=== PATIENT | male | born 1965 | race Caucasian/White ===

== ENCOUNTER 2021-01-30 08:40 | Emergency (ER) | payer MEDICAID, SELFPAY ==
[2021-01-30 08:41] VITALS: BP 171/83; PULSE 53; RESP 17; TEMP 35.3; O2SAT 98; BMI 22.3
--- NOTE | 2021-01-30 09:22 | RAD_ITS ---
STUDY: X-RAY CHEST REASON FOR EXAM: Male, 55 years old. Fever TECHNIQUE: Single AP portable view of the chest. COMPARISON: None. FINDINGS: EKG electrodes are seen. Subcutaneous emphysema is seen overlying the left lateral chest wall and left upper abdominal wall. Mild degree of increased markings at the lung bases slightly more prominent on the right side suggestive of atelectasis. There is no demonstrated pleural abnormality. Normal size heart. Normal mediastinum and jay. Normal visualized pulmonary arteries. Normal visualized aortic arch and descending thoracic aorta. Normal visualized thoracic spine. Normal visualized ribs, clavicles, and shoulders. Small amount of free intra-abdominal air most likely secondary to prior recent abdominal surgery. There is evidence of the small bowel dilatation. RAD/Chest 1 View (Portable) IMPRESSION: Mild increased markings at the lung bases slightly worse on the right side suggests some basilar atelectasis. Subcutaneous emphysema overlying the left lateral chest wall and left upper lateral abdominal wall. Small amount of free intraperitoneal air. Small bowel dilatation. Electronically Signed: Jose Nichols MD at 11:21 EST , Service support ,
--- NOTE | 2021-01-30 09:22 | EKG12_ITS ---
Test Reason : Blood Pressure : / mmHG Vent. Rate : 053 BPM Atrial Rate : 053 BPM P-R Int : 094 ms QRS Dur : 100 ms QT Int : 452 ms P-R-T Axes : 058 041 043 degrees QTc Int : 424 ms Sinus bradycardia with short [place] Otherwise normal ECG Confirmed by OWEN DURON, ROSA ([id number]), medical editor JEAN-CLAUDE ALLEN ([id number]) on 02/03/2021 10:24:02 AM Referred By: RIKY Confirmed By:ROSA WEAVER MD
[2021-01-30 10:11] LABS: Absolute Lymphocyte Count 0.85 X10^3/uL (0.83-4.51); Absolute Neutrophil Count 10.9 X10^3/uL (2.0-7.7); Basophil# 0.02 X10^3/uL; Basophil% 0.2 % (0-1); Eosinophil# 0.01 X10^3/uL; Eosinophils% 0.1 % (0-5); Hematocrit 38.1 % (40-54); Lymphocyte # 0.85 X10^3/ul (0.83-4.51); Lymphocyte % 6.6 % (19-41); Mean Corp Hgb Conc 34.1 g/dL (32-36); Mean Corpuscular Hgb 30.4 pg (27.0-32.0); Mean Platelet Vol. 11.2 fl (6.2-12.0); Monocyte# 1.07 X10^3/uL; Monocyte% 8.3 % (0-10); NRBC Flagged by Analyzer 0 % (0-5); Neutrophil # 10.85 X10^3/uL (2.7-7.7); Neutrophil % 84.3 % (47-70); Platelet Count 194 K/mm3 (150-450); RBC Distribution Width CV 13.2 % (11.6-14.6); RBC Distribution Width SD 43.5 fl (35.1-43.9); Red Blood Count 4.28 M/mm3 (4.6-6.2); White Blood Count 12.9 K/mm3 (4.4-11.0)
[2021-01-30] MEDS: Ondansetron 4 MG/2 ML Vial IV (10:19)
[2021-01-30] MEDS: 0.9% Normal Saline 1,000 ML 999 ML IV (10:19)
[2021-01-30] MEDS: Acetaminophen 500 MG Tablet 1000 MG PO (10:20)
[2021-01-30 10:21] LABS: Prothrombin Time (Protime)PT. 12.3 SECONDS (11.7-14.9)
[2021-01-30 10:22] LABS: Partial Thromboplast Time 29.8 Seconds (24.1-36.2)
[2021-01-30 10:27] LABS: Lactic Acid 1.1 mmol/L (0.4-1.9)
[2021-01-30 10:28] VITALS: BP 172/84; PULSE 53; RESP 18; TEMP 36.7; O2SAT 99
[2021-01-30 10:28] LABS: ALB/GLOB Ratio 0.8 RATIO (0.9-2.4); AST(SGOT) 15 U/L (15-37); Alanine Aminotransfer ALT/SGPT 13 U/L (16-61); Albumin, Serum 3.1 g/dL (3.2-5.0); Alkaline Phosphatase 61 U/L (45-117); Anion Gap 7 (5-15); BUN 13 mg/dL (7-18); BUN/Creat Ratio 13.8 RATIO (10-20); Chloride 97 mmol/L (98-107); Creatinine, Serum 0.94 mg/dL (0.70-1.30); EST Glomerular Filtration Rate 88 mL/min (>60); Est Glom Filt Rate - Afr Amer 106 mL/min (>60); Estimated Creatinine Clearance 90.08 ml/min; Glucose 141 mg/dL (74-106); Potassium 3.7 mmol/L (3.5-5.1); Protein, Total 7.1 g/dL (6.4-8.2); Sodium Level 134 mmol/L (136-145)
--- NOTE | 2021-01-30 11:09 | EX.ED.DYSGE1 ---
HPI History of Present Illness Chief Complaint: General Illness Informant: patient and spouse/S.O. Onset/Context/Timing Onset: Days (3) Context: Gradual Onset Timing: Continuous Quality: Aching Location: Lower abdomen Worsened by: Nothing Relieved by: Oxycodone, ibuprofen Narrative Narrative: Patient presents with chills and sweats that have been getting worse over the past 3 days. Patient had a recent prostatectomy done at [facility]. Patient was discharged after the procedure. Patient started developing nausea and vomiting since that time. Patient has a Mistry catheter in. Patient states that he was having hematuria after his surgery but it started to clear up. Patient then stated that he started having some more hematuria again over the last 2 days. Patient states his symptoms are better after taking oxycodone and ibuprofen. Patient also admits to some increase in belching and hiccups. PFSH PFS Medical History Prostate cancer Home Medications amoxicillin-pot clavulanate 875 mg PO Q12H #20 tablet 01/30/21 [Rx Last Taken Unknown] docusate sodium 100 mg PO BID 01/30/21 [History Last Taken Unknown] ibuprofen 600 mg PO Q6H PRN 01/30/21 [History Last Taken 01/30/21] ondansetron 4 mg PO Q8H PRN PRN #10 tab 01/30/21 [Rx Last Taken Unknown] oxycodone 5 mg PO Q4H PRN 01/30/21 [History Last Taken 01/30/21 07:00] Allergy/AdvReac Type Severity Reaction Status Date / Time No Known Allergies Allergy Verified 10/22/14 09:47 Surgical History History of prostatectomy Social History Smoking Status: Current every day smoker tobacco type: cigarettes ROS ROS ED Constitutional Constitutional ED: Reports chills, subjective and sweats; Denies fever(s) Eyes Eyes: Denies blurry vision or change in vision ENT ENT ED: Denies rhinorrhea or sore throat Cardiovascular Cardiovascular: Denies chest pain or palpitations Respiratory/Chest Respiratory/Chest: Denies cough or dyspnea Gastrointestinal Gastrointestinal: Reports abdominal pain, nausea and vomiting Genitourinary Genitourinary ED: Reports hematuria; Denies dysuria Musculoskeletal Musculoskeletal: Denies back pain or neck pain Integumentary Denies abscess or rash Neurologic Neurologic: Denies headache(s) or weakness Allergic/Immunologic Allergic/Immunologic ED: Denies mouth swelling or urticaria EXAM Physical Exam Const Vital Signs: 01/30/21 08:41 01/30/21 10:28 01/30/21 12:14 Temperature 95.5 F L 98.0 F Temperature Source Temporal Oral Pulse Rate 53 L 53 L 51 L Respiratory Rate 17 18 20 H Respiratory Effort Normal Non-Labored Blood Pressure 171/83 H 172/84 H 168/82 H Blood Pressure Mean 112 113 110 Pulse Ox 98 99 Oxygen Delivery Method Room Air Room Air Room Air Positive well nourished and well developed General Appearance ED: well developed HEENT Reports moist mucous membranes Neck supple and no JVD Resp normal respiratory effort and clear to auscultation bilaterally Cardio regular rate, regular rhythm and no murmurs GI normal to inspection, nondistended, normoactive bowel sounds Palpation: soft and tender suprapubic; Negative for guarding or rebound tenderness present Extremity normal to inspection General Extremety ED: Negative for edema or tenderness General Extremity: Negative for edema Neuro oriented x3, CN's II-XII intact bilaterally and no sensory deficits noted Sensorium / Orientation: alert Motor Exam: strength 5/5 throughout Psych mental status grossly normal Skin no rashes or lesions noted MDM MDM MDM Narrative Medical decision making narrative: Patient was given IV fluids, Tylenol, and Zofran. EKG was obtained. On my interpretation, it showed a normal sinus rhythm with a rate of 53. AK interval, QRS interval, and QTc intervals were all normal. [place] was normal. There are no acute ST or T wave changes. CBC shows a slight leukocytosis of 12.9. Her PT with INR and PTT were normal. Comprehensive metabolic profile anterior laterally was essentially within normal limits. Lactate was normal at 1.1. Urinalysis shows leukocyte esterase of 100 with 25-50 red blood cells. There were positive nitrites and 10-25 white blood cells. Occult blood was 250. Portable chest x-ray was obtained. There is 1 view. On my interpretation, there is small amount of free intraperitoneal air. There is subcutaneous emphysema in the lateral aspect of the chest. There is some mild bowel dilatation. Radiologist also interpreted the x-ray and agrees. Because of this, CT scan of the abdomen pelvis was obtained. There is still some intraperitoneal air. There is subcutaneous emphysema. There is a small bowel ileus. These findings are likely from recent surgery. This was interpreted by the radiologist and reviewed by myself. Patient is feeling somewhat better on reevaluation. We will cover the patient for urinary tract infection. Patient was given a dose of Augmentin here. Patient was given a prescription for Zofran and Augmentin. Patient was instructed to start with small sips of fluids more frequently. Patient was instructed to advance to a bland diet and then to a regular diet as he is feeling better. Patient was instructed to follow-up with his urologist in 3 to 5 days. Patient understood and was agreeable with the plan. All questions were answered. Lab Data Attestation: I reviewed the patient's lab results. Labs: Laboratory Results - last 24 hr 01/30/21 01/30/21 01/30/21 09:50 09:50 09:50 WBC 12.9 H RBC 4.28 L Hgb 13.0 Hct 38.1 L MCV 89.0 MCH 30.4 MCHC 34.1 RDW Std Deviation 43.5 RDW Coeff of Fernando 13.2 Plt Count 194 MPV 11.2 Immature Gran % (Auto) 0.500 Neut % (Auto) 84.3 H Lymph % (Auto) 6.6 L Delta % (Auto) 8.3 Eos % (Auto) 0.1 Baso % (Auto) 0.2 Absolute Neuts (auto) 10.9 H Absolute Lymphs (auto) 0.85 Nucleated RBC % 0 PT 12.3 INR 1.0 APTT 29.8 Sodium 134 L Potassium 3.7 Chloride 97 L Carbon Dioxide 30.0 Anion Gap 7 BUN 13 Creatinine 0.94 Estim Creat Clear Calc 90.08 Est GFR (MDRD) Af Amer 106 Est GFR (MDRD) Non-Af 88 BUN/Creatinine Ratio 13.8 Glucose 141 H Lactic Acid Calcium 9.0 Total Bilirubin 0.60 AST 15 ALT 13 L Alkaline Phosphatase 61 Total Protein 7.1 Albumin 3.1 L Globulin 4.0 Albumin/Globulin Ratio 0.8 L Urine Color Urine Clarity Urine pH Ur Specific [place] Urine Protein Urine Glucose (UA) Urine Ketones Urine Occult Blood Urine Nitrite Urine Bilirubin Urine Urobilinogen Ur Leukocyte Esterase Urine RBC Urine WBC Ur Squamous Epith Cells Urine Bacteria Urine Mucus 01/30/21 01/30/21 09:50 11:31 WBC RBC Hgb Hct MCV MCH MCHC RDW Std Deviation RDW Coeff of Fernando Plt Count MPV Immature Gran % (Auto) Neut % (Auto) Lymph % (Auto) Delta % (Auto) Eos % (Auto) Baso % (Auto) Absolute Neuts (auto) Absolute Lymphs (auto) Nucleated RBC % PT INR APTT Sodium Potassium Chloride Carbon Dioxide Anion Gap BUN Creatinine Estim Creat Clear Calc Est GFR (MDRD) Af Amer Est GFR (MDRD) Non-Af BUN/Creatinine Ratio Glucose Lactic Acid 1.1 Calcium Total Bilirubin AST ALT Alkaline Phosphatase Total Protein Albumin Globulin Albumin/Globulin Ratio Urine Color [place] Urine Clarity Cloudy Urine pH 6.0 Ur Specific [place] 1.020 Urine Protein 100 H Urine Glucose (UA) 50 H Urine Ketones 50 H Urine Occult Blood 250 H Urine Nitrite Positive H Urine Bilirubin Negative Urine Urobilinogen Normal Ur Leukocyte Esterase 100 H Urine RBC 25-50 SEEN Urine WBC 10-25 SEEN Ur Squamous Epith Cells 0 SEEN Urine Bacteria 0 SEEN Urine Mucus 0 SEEN Radiography Chest X-Ray - ED: 1 View, Read by ED Physician, Read by Radiologist and - (Bibasilar atelectasis. Subcutaneous emphysema. No pneumothorax.) Diagnostic Testing: Clinical Impression(s) from Imaging Studies Chest X-Ray 01/30/21 09:22 IMPRESSION: Mild increased markings at the lung bases slightly worse on the right side suggests some basilar atelectasis. Subcutaneous emphysema overlying the left lateral chest wall and left upper lateral abdominal wall. Small amount of free intraperitoneal air. Small bowel dilatation. Electronically Signed: Jose Nichols MD at 11:21 EST , Service support , Abdomen/Pelvis CT 01/30/21 11:39 IMPRESSION: Diffuse subcutaneous emphysema as well as intraperitoneal free air and air in the pelvis suggestive of postoperative changes from the recent prostatectomy. Findings suggestive of a bowel ileus. Electronically Signed: Jose Nichols MD at 13:46 EST , Service support , EKG Initial EKG: Attestation: I personally reviewed and interpreted this EKG as follows: Interpretation: No Acute Injury Pattern and Sinus Bradycardia (53) Discharge Plan Triage Chief Complaint: General Illness ED Provider: Alton Preston Dx/Rx/DC Orders Clinical Impression: Postoperative ileus, Urinary tract infection Prescriptions: New ondansetron [ondansetron] 4 MG tablet 4 mg PO Q8H PRN PRN (Reason: Nausea) Qty: 10 RF: 0 amoxicillin-pot clavulanate [amoxicillin-pot clavulanate] 875 MG tablet 875 mg PO Q12H Qty: 20 RF: 0 No Action oxycodone 5 mg Capsule 5 mg PO Q4H PRN (Reason: Pain) RF: 0 ibuprofen 600 mg Tablet 600 mg PO Q6H PRN (Reason: Pain) RF: 0 docusate sodium 100 mg Tablet 100 mg PO BID RF: 0 Primary Care Provider: Leroy Redmond Referrals: Leroy Redmond MD [Primary Care Provider] - 3-5 Days Bernardino Davis MD [NON-STAFF] - 3-5 Days Disposition Disposition: Home, Self Care
--- NOTE | 2021-01-30 11:39 | CT_ITS ---
STUDY: CT ABDOMEN AND PELVIS WITH CONTRAST REASON FOR EXAM: Male, 55 years old. Abdominal pain -- IV PO Contrast RADIATION DOSAGE (If Supplied By Facility): CTDIvol = ( 10.47 ) mGy, DLP = ( 623.43 ) mGycm TECHNIQUE: Transaxial images were obtained from the dome of the diaphragm to the symphysis pubis with oral contrast. Oral and amp; IV Gastrografin and amp; 100mL Isovue-300 was administered. Sagittal and coronal images were reconstructed. Individualized dose optimization techniques were used for this CT. COMPARISON: Comparison is made with prior radiograph done earlier today. FINDINGS: There is evidence of subcutaneous emphysema overlying the lower left lateral chest wall as well as the lateral and anterior aspects of the abdominal wall. There is also evidence of subcutaneous emphysema overlying the lower right anterior and lateral abdominal wall. This extends into the anterior abdominal wall extending into both scrotums. There is evidence of intraperitoneal air. Tiny air pockets are also seen in the pelvic fat. Minimal bibasilar atelectasis. The visualized portions of the heart are within normal limits. Normal liver. Small amount of free fluid is seen along the inferior edge of the liver. Normal gallbladder and extrahepatic biliary system. Normal spleen. Normal pancreas. There is symmetric enlargement of the adrenal glands suggesting adrenal hyperplasia. Normal right kidney. Normal left kidney. Normal visualized stomach. Mildly dilated small bowel loops. Distended transverse colon with the air. The appendix is visualized and appears normal. Normal abdominal aorta. Normal inferior vena cava. Normal retroperitoneum. A ZENDEJAS catheter is seen within a decompressed urinary bladder. The patient is status post prostatectomy. Normal abdominal wall. Normal osseous structures. CT/Abdomen/Pelvis WITH Contrast IMPRESSION: Diffuse subcutaneous emphysema as well as intraperitoneal free air and air in the pelvis suggestive of postoperative changes from the recent prostatectomy. Findings suggestive of a bowel ileus. Electronically Signed: Jose Nichols MD at 13:46 EST , Service support ,
[2021-01-30 11:44] LABS: Bacteria 0 SEEN /hpf (None Seen); Mucous, Urine 0 SEEN /hpf (<or=2+); Squamous Epithelial Cells - UA 0 SEEN /hpf (0-5)
[2021-01-30 11:51] LABS: Color, Urine Amber (Yellow); Glucose, Dipstick 50 mg/dl (Normal); Ketone-Dipstick 50 mg/dl (Negative); Leukocyte Esterase-Dipstick 100 /ul (Negative); Nitrite-Dipstick Positive (Negative); Occult Blood-Urine 250 /ul (Negative); Protein-Dipstick 100 mg/dl (Negative); Urine Bilirubin Dipstick Negative (Negative); Urine Clarity Cloudy (Clear); Urine Urobilinogen Normal (Normal)
[2021-01-30 11:57] LABS: Red Blood Cells-Urine 25-50 SEEN /hpf (0-5); White Blood Cells 10-25 SEEN /hpf (0-5)
[2021-01-30 12:14] VITALS: BP 168/82; PULSE 51; RESP 20
[2021-01-30 14:05] VITALS: BP 146/75; PULSE 82; RESP 18; O2SAT 96
[2021-01-30] MEDS: Amox/Clavulanate 875 MG Tablet PO (14:22)
== END 2021-01-30 14:27 | disposition home or self-care (01) ==
PROVIDERS: Emergency Provider Emergency Medicine; PCP Family Medicine
DX: K56.7 Ileus, unspecified (principal); N39.0 Urinary tract infection, site not specified; F17.210 Nicotine dependence, cigarettes, uncomplicated; Z90.79 Acquired absence of other genital organ(s); Z79.899 Other long term (current) drug therapy
CPT/HCPCS: 71045; 74177; 80053; 81001; 83605; 85025; 85610; 85730; 87040; 87086; 93005; 96374; 99284; J7030; Q9967; J2405

== ENCOUNTER 2021-01-31 14:09 | Emergency (ER) | payer MEDICAID, SELFPAY ==
[2021-01-31] VITALS (7 sets, daily range): BP systolic 101–161; BP diastolic 84–98; PULSE 62–79; RESP 18–29; TEMP 36.9–37.2; O2SAT 96–100; BMI 22.3
--- NOTE | 2021-01-31 14:39 | EDS_ITS ---
HPI History of Present Illness Chief Complaint: Nausea/Vomiting Informant: patient and spouse/S.O. Onset/Context/Timing Onset: Days Narrative Narrative: Patient returns back to the emergency room today with continued nausea and vomiting along with hiccups. Patient had a prostatectomy performed on Wednesday at [facility]. He was discharged home after the surgery. He was seen in [place] ER yesterday with hiccups, nausea. During the work-up yesterday patient was noted to have an ileus. Patient returns today with inability to keep anything down. PFSH PFS Medical History Prostate cancer Home Medications amoxicillin-pot clavulanate 875 mg PO Q12H #20 tablet 01/30/21 [Rx Last Taken Unknown] docusate sodium 100 mg PO BID 01/30/21 [History Last Taken Unknown] ibuprofen 600 mg PO Q6H PRN 01/30/21 [History Last Taken 01/30/21] ondansetron 4 mg PO Q8H PRN PRN #10 tab 01/30/21 [Rx Last Taken Unknown] oxycodone 5 mg PO Q4H PRN 01/30/21 [History Last Taken 01/30/21 07:00] Allergy/AdvReac Type Severity Reaction Status Date / Time No Known Allergies Allergy Verified 01/31/21 14:09 Surgical History History of prostatectomy Social History Smoking Status: Current every day smoker tobacco type: cigarettes ROS ROS ED Constitutional Constitutional ED: Denies chills or fever(s) Eyes Eyes: Denies change in vision ENT ENT ED: Denies rhinorrhea Cardiovascular Cardiovascular: Denies chest pain or palpitations Respiratory/Chest Respiratory/Chest: Denies cough or dyspnea Gastrointestinal Gastrointestinal: Reports abdominal pain, nausea and vomiting Musculoskeletal Musculoskeletal: Denies myalgias Integumentary Denies rash Neurologic Neurologic: Denies headache(s) Psychiatric Psychiatric: Denies anxiety or depression Endocrine Endocrinology: Denies polydipsia or polyuria EXAM Physical Exam Const Vital Signs: 01/31/21 14:09 01/31/21 14:12 01/31/21 16:09 Temperature 98.9 F Temperature Source Temporal Pulse Rate 66 75 62 Respiratory Rate 18 18 19 H Blood Pressure 161/90 H 161/90 H 138/86 H Blood Pressure Mean 113 113 103 Pulse Ox 100 100 99 Oxygen Delivery Method Room Air Room Air Room Air Positive well nourished and well developed General Appearance ED: well developed Eyes PERRL Neck supple Chest Wall inspection of chest normal and palpation of chest normal Resp normal respiratory effort and clear to auscultation bilaterally Cardio regular rate and regular rhythm GI non-tender Auscultation: hypoactive bowel sounds Palpation: soft Extremity normal to inspection Neuro oriented x3 Sensorium / Orientation: alert Skin no rashes or lesions noted MDM MDM MDM Narrative Medical decision making narrative: Patient is given IV fluids. He is given a dose of Thorazine to help with hiccups. EKG, lab work obtained. I did review his work-up from yesterday including CT scan. Lab Data Attestation: I reviewed the patient's lab results. Labs: Laboratory Results - last 24 hr 01/31/21 01/31/21 14:27 14:27 WBC 14.8 H RBC 4.47 L Hgb 13.4 Hct 39.5 L MCV 88.4 MCH 30.0 MCHC 33.9 RDW Std Deviation 42.8 RDW Coeff of Fernando 13.2 Plt Count 271 MPV 10.8 Immature Gran % (Auto) 0.300 Neut % (Auto) 79.2 H Lymph % (Auto) 11.0 L [place] % (Auto) 8.0 Eos % (Auto) 1.3 Baso % (Auto) 0.2 Absolute Neuts (auto) 11.7 H Absolute Lymphs (auto) 1.63 Nucleated RBC % 0 Sodium 135 L Potassium 3.6 Chloride 99 Carbon Dioxide 29.0 Anion Gap 7 BUN 15 Creatinine 1.03 Estim Creat Clear Calc 82.20 Est GFR (MDRD) Af Amer 96 Est GFR (MDRD) Non-Af 79 BUN/Creatinine Ratio 14.6 Glucose 118 H Calcium 9.1 Total Bilirubin 0.80 Direct Bilirubin 0.18 AST 19 ALT 16 Alkaline Phosphatase 61 Total Protein 7.1 Albumin 3.2 Globulin 3.9 Treatment and Re-Evaluation Comments:: On repeat evaluation patient states hiccups seem to be resolved for short time, but when the patient sat up they returned. He is clearly not been able to tolerate p.o. normally this week. He has failed outpatient management. I will speak with hospitalist regarding admission for observation and hydration. He does have evidence of ileus on CT scan from yesterday. He states he was passing gas this morning. Addendum: I spoke with the hospitalist. She requested that that surgery evaluate the patient and ensure he could stay here. Dr. Houston presented to the emergency room to see the patient and reviewed the CT scan from last evening. He is concerned that the patient has a bowel injury as there is significantly more air present then should be 4 days postop from a prostatectomy. He recommended the patient be given Zosyn, NG tube, transferred back to [facility]. Patient accepted by Dr Davis to the ED at [facility]. Discharge Plan Triage Chief Complaint: Nausea/Vomiting ED Provider: Ananya Calles Dx/Rx/DC Orders Clinical Impression: Postoperative ileus, Intractable hiccups, Vomiting Prescriptions: No Action oxycodone 5 mg Capsule 5 mg PO Q4H PRN (Reason: Pain) RF: 0 ibuprofen 600 mg Tablet 600 mg PO Q6H PRN (Reason: Pain) RF: 0 docusate sodium 100 mg Tablet 100 mg PO BID RF: 0 ondansetron [ondansetron] 4 MG tablet 4 mg PO Q8H PRN PRN (Reason: Nausea) Qty: 10 RF: 0 amoxicillin-pot clavulanate [amoxicillin-pot clavulanate] 875 MG tablet 875 mg PO Q12H Qty: 20 RF: 0 Primary Care Provider: Leroy Redmond Referrals: Leroy Redmond MD [Primary Care Provider] - Disposition Disposition: Acute Care Hospital Discharge Location: [facility]
[2021-01-31 14:45] LABS: Absolute Lymphocyte Count 1.63 X10^3/uL (0.83-4.51); Absolute Neutrophil Count 11.7 X10^3/uL (2.0-7.7); Basophil# 0.03 X10^3/uL; Basophil% 0.2 % (0-1); Eosinophils% 1.3 % (0-5); Hematocrit 39.5 % (40-54); Hemoglobin 13.4 g/dL (13.0-16.5); Lymphocyte # 1.63 X10^3/ul (0.83-4.51); Mean Corp Hgb Conc 33.9 g/dL (32-36); Mean Corpuscular Volume 88.4 fL (80-94); Mean Platelet Vol. 10.8 fl (6.2-12.0); Monocyte# 1.19 X10^3/uL; NRBC Flagged by Analyzer 0 % (0-5); Neutrophil # 11.72 X10^3/uL (2.7-7.7); Neutrophil % 79.2 % (47-70); Platelet Count 271 K/mm3 (150-450); RBC Distribution Width CV 13.2 % (11.6-14.6); RBC Distribution Width SD 42.8 fl (35.1-43.9); Red Blood Count 4.47 M/mm3 (4.6-6.2); White Blood Count 14.8 K/mm3 (4.4-11.0)
--- NOTE | 2021-01-31 14:52 | EKG12_ITS ---
Test Reason : NAUSEA/VOMITING Blood Pressure : / mmHG Vent. Rate : 066 BPM Atrial Rate : 066 BPM P-R Int : 088 ms QRS Dur : 082 ms QT Int : 392 ms P-R-T Axes : 060 068 054 degrees QTc Int : 410 ms Sinus rhythm with short [place] Otherwise normal ECG Confirmed by SCARLETT DURON, MARIO ([id number]), editor map JEAN-CLAUDE ALLEN ([id number]) on 02/03/2021 11:27:10 AM Referred By: IRENE Confirmed By:MARIO PANTOJA MD
[2021-01-31] MEDS: 0.9% Normal Saline 1,000 ML 1000 ML IV (14:54)
[2021-01-31 14:57] LABS: AST(SGOT) 19 U/L (15-37); Alanine Aminotransfer ALT/SGPT 16 U/L (16-61); Albumin, Serum 3.2 g/dL (3.2-5.0); Alkaline Phosphatase 61 U/L (45-117); Anion Gap 7 (5-15); BUN 15 mg/dL (7-18); BUN/Creat Ratio 14.6 RATIO (10-20); Bilirubin, Direct 0.18 mg/dL (0.00-0.30); Calcium,Total 9.1 mg/dL (8.5-10.1); Chloride 99 mmol/L (98-107); Creatinine, Serum 1.03 mg/dL (0.70-1.30); EST Glomerular Filtration Rate 79 mL/min (>60); Est Glom Filt Rate - Afr Amer 96 mL/min (>60); Globulin 3.9 g/dL (2.2-4.2); Glucose 118 mg/dL (74-106); Potassium 3.6 mmol/L (3.5-5.1); Protein, Total 7.1 g/dL (6.4-8.2); Sodium Level 135 mmol/L (136-145)
[2021-01-31] MEDS: ChlorproMAZINE 50 MG/2 ML Ampul 25 MG IM (15:25)
[2021-01-31] MEDS: 0.9% Normal Saline 1,000 ML 150 ML IV (17:12)
[2021-01-31] MEDS: Lidocaine 4% 5 ML Ampul 2 ML INHALATION (17:46)
[2021-01-31] MEDS: Oxymetazoline 0.05% 1 SPRAY SPRAY.BTL 2 SPRAY NASAL (18:12)
--- NOTE | 2021-01-31 18:20 | RAD_ITS ---
INDICATION: NGT placement -- KUB with both diaphragms for NG/OG Verification EXAMINATION/TECHNIQUE: X-RAY - XR Abdomen 1 View COMPARISON: CT abdomen/pelvis 01/30/2021 FINDINGS: BOWEL GAS PATTERN: Prominent air-filled dilatation of the large and small bowel consistent with known ileus. Interval placement of NG tube with tip in the stomach. FREE AIR: Not assessed on a single supine view. ORGANOMEGALY: Not seen. CALCIFICATIONS: No abnormal calcifications observed. LOWER CHEST: No acute pathology. BONES AND SOFT TISSUES: Subcutaneous emphysema along the left and right abdominal patiño. RAD/Abdomen Single View (Portable) IMPRESSION: Interval placement of NG tube with tip in the stomach. Electronically Signed: Roshan Kenyon MD at 18:54 EST Tel , Service support ,
--- NOTE | 2021-01-31 19:50 | ED.RN ---
Pt family upset about the squad past their ETA of 1930. This RN explains we state we will call again to get a new ETA, this RN apologizes. Pt asking for water to drink, this RN explains he is NPO until seen at [place]. Pt offered mouth swabs.
--- NOTE | 2021-01-31 21:05 | ED.RN ---
Family irrate about squad being late and having no real ETA. Pt's son states you better call someone who can get this done or there will be a scene. This RN apologizes again, family asking for my supervisor pipeline maintenance. Charge nurse Julienne Worthington sent to bedside. area secretary to call and PAS for new ETA.
--- NOTE | 2021-01-31 21:20 | NURSING ---
I WAS INFORMED PHYSICIANS WOULD ARRIVE AT 1930. AT 1945 NO SQUAD WAS HERE SO I CALLED FOR AN UPDATE. I WAS INFORMED THE 1999 CREW WOULD BE COMING AND IT SHOULD BE ANOTHER 30 MINUTES. AT 2029 THERE STILL WAS NO SQUAD SO I CALLED AGAIN AND I WAS TOLD THE CREW WAS FILLING THEIR OXYGEN TAKES BUT DISPATCH WOULD GET THEM MOVING. AT 2109 I WAS INFORMED THERE IS A SQUAD ON OUR ER RAMP. STILL NO CREW AT 2121
--- NOTE | 2021-01-31 21:30 | NURSING ---
CALLED PHYSICIANS AGAIN AND WAS TOLD SQUAD WAS ON THE WAY AND WOULD BE ANOTHER 10 MINUTES.
--- NOTE | 2021-01-31 21:50 | ED.RN ---
Pt family comes back out to desk asking for someone higher than him Referring to Naila. Family requesting to call different squad or signing patient out and taking them himself to [facility]. Jerri Talbot sent to bedside. This RN continues to apologize to family and patient. Pt asking family not to fight stating i dont need this, calm down please
--- NOTE | 2021-01-31 22:05 | ED.RN ---
transport at bedside, report given.
== END 2021-01-31 22:10 | disposition short-term general hospital (02) ==
PROVIDERS: Emergency Provider Emergency Medicine; PCP Family Medicine
DX: K56.7 Ileus, unspecified (principal); K91.89 Other postprocedural complications and disorders of digestive system; R06.6 Hiccough; R11.2 Nausea with vomiting, unspecified; F17.210 Nicotine dependence, cigarettes, uncomplicated
CPT/HCPCS: 74018; 80048; 80076; 85025; 87040; 87426; 93005; 94640; 96361; 96365; 96372; 99285; J7030; A4216; J2405

== ENCOUNTER → 2021-07-21 | Outpatient (CLI) | payer MEDICAID, SELFPAY ==
[2021-07-21 12:21] LABS: Absolute Lymphocyte Count 1.32 X10^3/uL (0.83-4.51); Absolute Neutrophil Count 3.4 X10^3/uL (2.0-7.7); Basophil# 0.05 X10^3/uL; Basophil% 0.9 % (0-1); Eosinophil# 0.35 X10^3/uL; Hematocrit 42.4 % (40-54); Hemoglobin 14.2 g/dL (13.0-16.5); Lymphocyte # 1.32 X10^3/ul (0.83-4.51); Lymphocyte % 22.5 % (19-41); Mean Corp Hgb Conc 33.5 g/dL (32-36); Mean Corpuscular Hgb 29.5 pg (27.0-32.0); Mean Corpuscular Volume 88.1 fL (80-94); Mean Platelet Vol. 10.8 fl (6.2-12.0); Monocyte# 0.68 X10^3/uL; Monocyte% 11.6 % (0-10); NRBC Flagged by Analyzer 0 % (0-5); Neutrophil # 3.44 X10^3/uL (2.7-7.7); Neutrophil % 58.7 % (47-70); Platelet Count 207 K/mm3 (150-450); RBC Distribution Width CV 14.6 % (11.6-14.6); RBC Distribution Width SD 47.4 fl (35.1-43.9); Red Blood Count 4.81 M/mm3 (4.6-6.2); White Blood Count 5.9 K/mm3 (4.4-11.0)
[2021-07-21 13:13] LABS: AST(SGOT) 20 U/L (15-37); Alanine Aminotransfer ALT/SGPT 20 U/L (16-61); Albumin, Serum 3.3 g/dL (3.2-5.0); Alkaline Phosphatase 80 U/L (45-117); Anion Gap 4 (5-15); BUN 16 mg/dL (7-18); BUN/Creat Ratio 13.2 RATIO (10-20); Calcium,Total 9.2 mg/dL (8.5-10.1); Chloride 108 mmol/L (98-107); Creatinine, Serum 1.21 mg/dL (0.70-1.30); EST Glomerular Filtration Rate 66 mL/min (>60); Est Glom Filt Rate - Afr Amer 80 mL/min (>60); Globulin 3.3 g/dL (2.2-4.2); Glucose 100 mg/dL (74-106); Protein, Total 6.6 g/dL (6.4-8.2); Sodium Level 142 mmol/L (136-145); Thyroid Stim Hormone (TSH) 1.39 uIU/mL (0.358-3.74)
[2021-07-21 13:30] LABS: Hepatitis C Antibody Non-Reactive (Nonreactive); Vitamin D,25 Hydroxy 37.4 ng/mL
== END | disposition home or self-care (01) ==
LOC: POLAB3 11:58
PROVIDERS: PCP Family Medicine Geriatric Medicine; Visit Provider Family Medicine Geriatric Medicine
DX: E55.9 Vitamin D deficiency, unspecified (principal); R53.83 Other fatigue; Z13.89 Encounter for screening for other disorder
CPT/HCPCS: 36415; 80053; 82306; 84443; 85025; 86803

== ENCOUNTER → 2021-07-26 | Outpatient (CLI) | payer MEDICAID, SELFPAY ==
--- NOTE | 2021-07-26 09:59 | CT_ITS ---
STUDY: LOW DOSE CT LUNG CANCER SCREENING REASON FOR EXAM: Male, 55 years old. TOBACCO DEPENDENCE RADIATION DOSAGE (If Supplied By Facility): CTDIvol = ( 3.02 ) mGy, DLP = ( 103.07 ) mGycm TECHNIQUE: No contrast was administered. Low dose technique was utilized (average mAS-38 and kVp 120). 1.25 mm axial source images with a slice interval of 1.25-mm were reconstructed in lung windows. 2.5 mm axial source images with a slice interval of 2.5-mm were reconstructed in lung windows. 5.0 mm axial source images with a slice interval of 5.0-mm were reconstructed in soft tissue windows. COMPARISON: None. NODULES: Nodule #: 1 Density: Solid Lung location: Right upper lobe: 1.4 cm from pleura Location in series: Series Number: 2 Image: 63 Size - D1 x D2 mm: mm: 0.3 average diameter Margin: Smokes Shape: Around Calcification: None Fat: None Temporal comparison: None Total lung nodules (excluding granulomas): 1 Emphysema: Mild Endobronchial lesion: None Aorta: Mild atherosclerosis. CORONARY ARTERIES: Coronary artery calcification none Heart: Not enlarged Pulmonary artery: Normal size Mediastinal nodes: No adenopathy. Other chest and abdominal findings: Multilevel thoracic spondylosis. Diffuse osteopenia. CT/Low Dose CT Lung Screening IMPRESSION: A 0.3 cm solitary nodule in the right upper lobe. Lung RADS 2. Continued annual low dose CT screening in 12 months. IMPORTANT NOTES FOR USE: ACR Lung-RADS Version 1.1 Assessment Categories Release Date: 2018 Category: Coded 0-4 bases on nodule(s) with highest degree of suspicion. Negative screen is defined as categories 1 and 2; a positive screen is defined as categories 3 and 4. Category 3 and 4A nodules that are unchanged on interval CT should be coded as category 2, and individuals returned to screening in 12 months. Category 4X: Category 3 or 4 nodules with additional imaging findings that increase the suspicion of lung cancer, such as spiculation, GGN that doubles in size in 1 year, enlarged lymph notes, etc. Category Modifiers: S (significant finding unrelated to lung cancer) Electronically Signed: Hussein Garber MD at 11:56 EDT ,
== END | disposition home or self-care (01) ==
LOC: CT 09:55
PROVIDERS: PCP Family Medicine Geriatric Medicine; Referring Provider Family Medicine Geriatric Medicine; Visit Provider Family Medicine Geriatric Medicine
DX: F17.200 Nicotine dependence, unspecified, uncomplicated (principal)
CPT/HCPCS: 71271

== ENCOUNTER 2021-09-09 06:21 | Day surgery (SDC) | payer MEDICAID, SELFPAY ==
[2021-09-09] VITALS (7 sets, daily range): BP systolic 83–130; BP diastolic 49–80; PULSE 43–97; RESP 16–18; TEMP 36.1–36.6; O2SAT 96–99; BMI 23.8
[2021-09-09] MEDS: Lactated Ringers 1,000 ML 15 ML IV (06:40)
--- NOTE | 2021-09-09 06:47 | HP.PCM_ITS ---
HPI - General HPI Narrative CASTILLO PRADO, is a 55 M who presents for surveillance colonoscopy. Patient reports his last colonoscopy was 3 years ago and multiple polyps were removed. Patient denies any abdominal pain or blood in the stool. Patient denies family history of colon cancer. ON LICENSE OF [facility] Medical History (Updated 09/09/21 @ 06:[address] Alfonso Houston MD) Arthritis Colon polyps Former smoker Mixed hyperlipidemia Prostate cancer Restless legs Home Medications calcium carbonate 600 mg-vitamin D3 20 mcg (800 unit) tablet (Caltrate with Vitamin D3) 1 tab PO BID 07/29/21 [History Last Taken Unknown] Allergy/AdvReac Type Severity Reaction Status Date / Time No Known Allergies Allergy Verified 09/04/21 11:59 Family History Father Diabetes Cirrhosis Mother Diabetes Arthritis Surgical History History of colonoscopy History of prostatectomy Social History Smoking Status: Former smoker Past Medical/Surgical History Planned Operation Planned Operative Procedure/s: CSCOPE OA Previous Hospitalizations/Surgeries HX Hospitalizations: No Any Problems With Anesthesia: No You/Your Family Experience Fever (Hyperthermia) With Anes: No Cholinesterase deficiency: No Cardiovascular Hx Hypertension: No Respiratory Hx Sleep Apnea: No Hx Respiratory Tract Infection/Cold (presently): No Do You Snore Loudly (louder than talking or can be heard): No Do You Often Feel Tired/ Fatigued/ Sleepy Dring Daytime?: No Has Anyone Observed You Stop Breathing During Sleep?: No Result (for STOP score): Negative Smoking Status: Former smoker Neurological Does patient have nerve stimulator: No Reproduction : No Allergies No Known Allergies Allergy (Verified 09/04/21 11:59) Discharge Is Pt Admitted From a Senior Care, or a Detention: No After D/C, Where Do you Plan to Go: Return Home Physical Exam Const alert and oriented x3 Resp normal respiratory effort and normal air movement Cardio regular rate and regular rhythm GI soft to palpation, non-tender and non-distended Assessment & Plan Assessment/Plan (1) Encounter for screening colonoscopy: (2) History of colon polyps: PLAN: Plan I explained endoscopy in detail to the patient. I explained the risks including but not limited to stroke or heart attack with anesthesia, perforation of the GI tract, bleeding, infection. I explained that any of these could necessitate further emergency surgery. The patient understands and all questions were a nswered sufficiently. The patient wishes to proceed with procedure. Alfonso Houston MD Pager: [facility] [address] [place] [address], [address] [place] [address] Office: Surgery Risks - Colonoscopy Risks Include but are not Limited To: Risks include but are not limited to: Bleeding, perforation requiring further surgery, inability to complete colonoscopy requiring barium enema.
[2021-09-09] MEDS: Glucagon 1 MG/ML Syringe (07:36)
--- NOTE | 2021-09-09 07:56 | OP.COLON_ITS ---
Patient Name: Leroy Chawla Procedure Date: 09/09/2021 7:14 AM Date of : 1965 Age: 55 Procedure: Colonoscopy Indications: High risk colon cancer surveillance: Personal history of colonic polyps Providers: Alfonso Houston MD Referring MD: Lance Velazquez MD Medicines: Monitored Anesthesia Care Patient Profile: This is a 55 year old male. Refer to note in patient chart for documentation of history and physical. Last Colonoscopy: 3 years ago. Complications: No immediate complications. Procedure: Pre-Anesthesia Assessment: - Prior to the procedure, a History and Physical was performed, and patient medications and allergies were reviewed. The patient's tolerance of previous anesthesia was also reviewed. The risks and benefits of the procedure and the sedation options and risks were discussed with the patient. All questions were answered, and informed consent was obtained. Prior Anticoagulants: The patient has taken no previous anticoagulant or antiplatelet agents. After reviewing the risks and benefits, the patient was deemed in satisfactory condition to undergo the procedure. After I obtained informed consent, the scope was passed under direct vision. Throughout the procedure, the patient's blood pressure, pulse, and oxygen saturations were monitored continuously. The Colonoscope was introduced through the anus and advanced to the cecum, identified by appendiceal orifice and ileocecal valve. The colonoscopy was performed without difficulty. The patient tolerated the procedure well. The quality of the bowel preparation was good. Scope In: 7:33:01 AM Scope Withdrawal Time 0 hours 6 minutes 48 seconds Scope Out: 7:44:12 AM Total Procedure Duration Time 0 hours 11 minutes 11 seconds Findings: The entire examined colon appeared normal on direct and retroflexion views. Impression: - The entire examined colon is normal on direct and retroflexion views. - No specimens collected. Recommendation: - Discharge patient to home. - Resume previous diet. - Continue present medications. - Repeat colonoscopy in 5 years for screening purposes. Procedure Code(s): --- Professional --- 95246, Colonoscopy, flexible; diagnostic, including collection of specimen(s) by brushing or washing, when performed (separate procedure) Diagnosis Code(s): --- Professional --- Z86.010, Personal history of colonic polyps CPT copyright 2017 [employer]. All rights reserved. The codes documented in this report are preliminary and upon storage battery charger review may be revised to meet current compliance requirements. Alfonso Houston MD 09/09/2021 7:55:59 AM This report has been signed electronically. Number of Addenda: 0 Note Initiated On: 09/09/2021 7:14 AM
--- NOTE | 2021-09-09 07:57 | OP.CCLET_ITS ---
09/09/2021 Lance Velazquez MD [address] [place] [address] Re : Colonoscopy procedure for Leroy Chawla Dear Dr. Velazquez This procedure was performed on Thursday, September 09, 2021. My impressions and recommendations are as follows: Impressions : - The entire examined colon is normal on direct and retroflexion views. - No specimens collected. Recommendations : - Discharge patient to home. - Resume previous diet. - Continue present medications. - Repeat colonoscopy in 5 years for screening purposes. My findings are described in the full procedure note, which is enclosed. If I can be of further assistance, please feel free to contact me at Doctor phone number(s): , Work: . Sincerely, Alfonso Houston MD 09/09/2021 7:55:59 AM This report has been signed electronically.
== END 2021-09-09 08:36 | disposition home or self-care (01) ==
LOC: EN 06:22 → AC 06:23
PROVIDERS: PCP Family Medicine Geriatric Medicine; Referring Provider Family Medicine Geriatric Medicine; Visit Provider Surgery
PROC: 0DJD8ZZ Inspection of Lower Intestinal Tract, Via Natural or Artificial Opening Endoscopic (ICD-10-PCS; CPT 45378; principal; 2021-09-09 07:25)
DX: Z12.11 Encounter for screening for malignant neoplasm of colon (principal); Z86.010 Personal history of colon polyps; Z87.891 Personal history of nicotine dependence
CPT/HCPCS: 45378; J7120; J1610; J2405

== ENCOUNTER → 2022-01-14 | Outpatient (CLI) | payer MEDICAID, SELFPAY ==
[2022-01-14 18:54] LABS: M R Staph aureus DNA By PCR Negative (Negative); Probe Check PASS; Specimen Processing Control PASS; Staph aureus DNA By PCR NEGATIVE (Negative)
== END | disposition home or self-care (01) ==
LOC: LABSPEC 14:02
PROVIDERS: PCP Family Medicine Geriatric Medicine; Visit Provider Family Medicine Geriatric Medicine
DX: L03.211 Cellulitis of face (principal)
CPT/HCPCS: 87070; 87205; 87640

== ENCOUNTER → 2022-02-16 | Outpatient (CLI) | payer MEDICAID, SELFPAY ==
[2022-02-16 13:22] LABS: Absolute Lymphocyte Count 1.07 X10^3/uL (0.83-4.51); Absolute Neutrophil Count 2.5 X10^3/uL (2.0-7.7); Basophil# 0.01 X10^3/uL; Basophil% 0.2 % (0-1); Eosinophil# 0.55 X10^3/uL; Eosinophils% 12.1 % (0-5); Hemoglobin 13.9 g/dL (13.0-16.5); Lymphocyte # 1.07 X10^3/ul (0.83-4.51); Lymphocyte % 23.6 % (19-41); Mean Corp Hgb Conc 31.6 g/dL (32-36); Mean Corpuscular Hgb 29.2 pg (27.0-32.0); Mean Corpuscular Volume 92.4 fL (80-94); Mean Platelet Vol. 14.8 fl (6.2-12.0); Monocyte% 8.8 % (0-10); NRBC Flagged by Analyzer 0 % (0-5); Neutrophil % 55.1 % (47-70); Platelet Count 149 K/mm3 (150-450); RBC Distribution Width CV 13.5 % (11.6-14.6); Red Blood Count 4.76 M/mm3 (4.6-6.2); White Blood Count 4.5 K/mm3 (4.4-11.0)
[2022-02-16 13:41] LABS: Vitamin D,25 Hydroxy 43.2 ng/mL
[2022-02-16 13:56] LABS: AST(SGOT) 18 U/L (15-37); Alanine Aminotransfer ALT/SGPT 17 U/L (16-61); Albumin, Serum 3.4 g/dL (3.2-5.0); Alkaline Phosphatase 93 U/L (45-117); Anion Gap 4 (5-15); BUN 13 mg/dL (7-18); BUN/Creat Ratio 11.4 RATIO (10-20); Calcium,Total 8.8 mg/dL (8.5-10.1); Chloride 106 mmol/L (98-107); Creatinine, Serum 1.14 mg/dL (0.70-1.30); EST Glomerular Filtration Rate 70 mL/min (>60); Est Glom Filt Rate - Afr Amer 85 mL/min (>60); Globulin 3.3 g/dL (2.2-4.2); Glucose 92 mg/dL (74-106); Potassium 4.2 mmol/L (3.5-5.1); Protein, Total 6.7 g/dL (6.4-8.2); Sodium Level 141 mmol/L (136-145); Thyroid Stim Hormone (TSH) 1.32 uIU/mL (0.358-3.74)
== END | disposition home or self-care (01) ==
LOC: POLAB3 09:11
PROVIDERS: PCP Family Medicine Geriatric Medicine; Visit Provider Family Medicine Geriatric Medicine
DX: E55.9 Vitamin D deficiency, unspecified (principal); R53.83 Other fatigue
CPT/HCPCS: 36415; 80053; 82306; 84443; 85025

== ENCOUNTER → 2022-05-05 | Outpatient (CLI) | payer MEDICAID, SELFPAY ==
--- NOTE | 2022-05-05 17:00 | RAD_ITS ---
STUDY: X-RAY - ABDOMEN/PELVIS REASON FOR EXAM: Male, 56 years old. Diarrhea. TECHNIQUE: AP supine and upright views of the abdomen and pelvis on 3 images. COMPARISON: January 31, 2021. FINDINGS: Normal visualized lung bases. Normal bowel gas pattern with air seen to the rectum. There is no demonstrated free abdominal air. The visualized liver, spleen and kidneys are grossly normal in size and morphology. Normal soft tissue structures. Normal visualized osseous structures. RAD/Abd Inc Decub and/or Erect IMPRESSION: No abnormality of the visualized lower chest, abdomen or pelvis. Electronically Signed: Nasir Canales, at 11:46 EST ,
[2022-05-05 17:54] LABS: Absolute Lymphocyte Count 1.05 X10^3/uL (0.83-4.51); Basophil# 0.02 X10^3/uL; Basophil% 0.3 % (0-1); Eosinophil# 0.05 X10^3/uL; Eosinophils% 0.8 % (0-5); Hematocrit 46.5 % (40-54); Hemoglobin 15.5 g/dL (13.0-16.5); Lymphocyte # 1.05 X10^3/ul (0.83-4.51); Lymphocyte % 17.4 % (19-41); Mean Corp Hgb Conc 33.3 g/dL (32-36); Mean Corpuscular Hgb 29.1 pg (27.0-32.0); Mean Corpuscular Volume 87.2 fL (80-94); Mean Platelet Vol. 12.6 fl (6.2-12.0); Monocyte# 0.85 X10^3/uL; Monocyte% 14.1 % (0-10); NRBC Flagged by Analyzer 0 % (0-5); Neutrophil # 4.04 X10^3/uL (2.7-7.7); Neutrophil % 67.2 % (47-70); Platelet Count 162 K/mm3 (150-450); RBC Distribution Width CV 13.6 % (11.6-14.6); RBC Distribution Width SD 43.8 fl (35.1-43.9); Red Blood Count 5.33 M/mm3 (4.6-6.2)
[2022-05-05 18:24] LABS: ALB/GLOB Ratio 0.9 RATIO (0.9-2.4); AST(SGOT) 24 U/L (15-37); Alanine Aminotransfer ALT/SGPT 21 U/L (16-61); Albumin, Serum 3.4 g/dL (3.2-5.0); Alkaline Phosphatase 94 U/L (45-117); Anion Gap 6 (5-15); BUN 22 mg/dL (7-18); Calcium,Total 8.8 mg/dL (8.5-10.1); Chloride 105 mmol/L (98-107); Creatinine, Serum 1.47 mg/dL (0.70-1.30); EST Glomerular Filtration Rate 52 mL/min (>60); Est Glom Filt Rate - Afr Amer 63 mL/min (>60); Globulin 3.8 g/dL (2.2-4.2); Glucose 95 mg/dL (74-106); Potassium 3.9 mmol/L (3.5-5.1); Protein, Total 7.2 g/dL (6.4-8.2); Sodium Level 137 mmol/L (136-145); Thyroid Stim Hormone (TSH) 2.38 uIU/mL (0.358-3.74)
== END | disposition home or self-care (01) ==
PROVIDERS: PCP Family Medicine Geriatric Medicine; Referring Provider Family Medicine Geriatric Medicine; Visit Provider Family Medicine Geriatric Medicine
DX: R53.83 Other fatigue (principal); R19.7 Diarrhea, unspecified
CPT/HCPCS: 36415; 74019; 80053; 84443; 85025

== ENCOUNTER → 2022-05-07 | Outpatient (CLI) | payer MEDICAID, SELFPAY | END | disposition home or self-care (01) | PROVIDERS: PCP Family Medicine Geriatric Medicine; Referring Provider Family Medicine Geriatric Medicine; Visit Provider Family Medicine Geriatric Medicine | DX: R19.7 Diarrhea, unspecified (principal) | CPT/HCPCS: 82274; 83630; 87177; 87209; 87493; 87506 ==